=== PATIENT | female | born 1940 | race Caucasian/White ===

== ENCOUNTER 2019-02-17 15:10 | Emergency (ER) | payer OTHER, SELFPAY ==
--- NOTE | 2019-02-17 15:19 | ED.SYNCOPE ---
HPI - Syncope General Chief Complaint: Syncope Stated Complaint: STATES 2 SEIZURES WHILE OUT IN YARD Time Seen by Provider: 02/17/19 15:10 Source: patient Mode of arrival: ambulatory Limitations: no limitations History of Present Illness HPI narrative: 78-year-old female nonsmoker with history of hypertension and hyperlipidemia presents with 2 episodes of witnessed loss of consciousness. She states she felt bit short of breath and then became intensely nauseated and sat down. Soon thereafter she lost consciousness and was witnessed by her friend. She denies any palpitations or chest pain leading into this. She denies any trauma before or as a result of the episodes. She was not changing position and denies any recent nausea, vomiting but has had episodes of diarrhea as a consequence of ongoing ?gallbladder syndrome ?. Related Data Home Medications Medication Instructions Recorded Confirmed albuterol sulfate [Proventil HFA] #0 05/19/17 amlodipine [Norvasc] 2.5 mg PO DAILY #0 05/19/17 02/17/19 atenolol 25 mg PO DAILY #0 05/19/17 02/17/19 atorvastatin [Lipitor] 40 mg PO DAILY #0 05/19/17 02/17/19 ferrous sulfate [Iron (ferrous #0 05/19/17 sulfate)] furosemide [Lasix] #0 05/19/17 glipizide #0 05/19/17 losartan [Cozaar] #0 05/19/17 mometasone-formoterol [Dulera] #0 05/19/17 trospium #0 05/19/17 levothyroxine 137 mcg PO DAILY 02/17/19 02/17/19 metformin 500 mg PO DAILY 02/17/19 02/17/19 sertraline 50 mg PO DAILY 02/17/19 02/17/19 Previous Rx's Medication Instructions Recorded cephalexin [Keflex] 500 mg PO QID 7 Days #28 cap 02/17/19 Allergies Allergy/AdvReac Type Severity Reaction Status Date / Time JOHNSON Inhibitors Allergy Unknown Unverified 12/18/17 12:47 [JOHNSON INHIBITORS] erythromycin base Allergy Unknown Unverified 12/18/17 12:47 [ERYTHROMYCIN BASE] orange (food color) Allergy Unknown Unverified 12/18/17 12:47 [ORANGE (FOOD COLOR)] red (food color) Allergy Unknown Unverified 12/18/17 12:47 [RED (FOOD COLOR)] Review of Systems Constitutional Denies chills, Denies fever(s), Denies lethargy and Reports weakness Eyes Denies change in vision, Denies eye discharge, Denies irritation and Denies loss of vision ENT Ears, Nose, Mouth, and Throat: Denies change in voice, Denies neck pain and Denies sore throat Cardiovascular Denies chest pain, Reports diaphoresis, Reports syncope, Denies irregular heart rhythm, Denies lightheadedness, Denies palpitations, Denies dyspnea, Denies dyspnea on exertion and Denies orthopnea Respiratory Denies cough, Denies dyspnea, Denies dyspnea on exertion and Denies wheezing Gastrointestinal Gastrointestinal: Denies abdominal pain, Denies change in bowel habits, Denies diarrhea, Denies nausea and Denies vomiting Genitourinary Denies hematuria, Denies flank pain, Denies urinary incontinence and Denies urinary urgency Musculoskeletal Denies neck pain Integumentary/Breasts Denies pruritus, Denies erythema, Denies rash and Denies wounds Neurologic Denies confusion, Reports syncope, Denies loss of vision and Reports weakness Psychiatric Denies anxiety, Denies confusion, Denies depression, Denies homicidal ideation and Denies suicidal ideation Endocrine Denies palpitations Hematologic/Lymphatic Denies easy bruising Allergic/Immunologic Denies wheezing [facility] Social History Smoking Status: Never smoker Social History Smoking Status: Never smoker Exam Narrative Exam Narrative: GENERAL: 78-year-old female appears stated age, clearly not feeling well. HEAD: Atraumatic. Normocephalic. No temporal or scalp tenderness. EYES: Pupils equal round and reactive. Extraocular motions intact. No scleral icterus. No injection or drainage. ENT: Nose without bleeding, purulent drainage or septal hematoma. Throat without erythema, tonsillar hypertrophy or exudate. Uvula midline. Airway patent. NECK: Trachea midline. No JVD or lymphadenopathy. Supple, nontender, no meningeal signs. CARDIOVASCULAR: Regular rate and rhythm without murmurs, gallops, or rubs. RESPIRATORY: Clear to auscultation. Breath sounds equal bilaterally. No wheezes, rales, or rhonchi. GASTROINTESTINAL: Abdomen soft, non-tender, nondistended. No hepato-splenomegaly, or palpable masses. No guarding. EXTREMITIES: No clubbing, cyanosis, or edema. No joint tenderness, effusion, or edema noted. BACK: Nontender without deformity or crepitance. No flank tenderness. NEURO: AOx3. SKIN: No rash or erythema. Initial Vital Signs Initial Vital Signs: Vital Signs Temperature 98.3 F 02/17/19 15:23 Pulse Rate 65 02/17/19 15:23 Respiratory Rate 17 02/17/19 15:23 Blood Pressure 133/64 02/17/19 15:23 Pulse Oximetry 96 02/17/19 15:23 Course Orders Ordered: ED Orders 02/17/19 15:17 EKG-12 Lead Stat 02/17/19 15:18 XR chest 1V Stat 02/17/19 15:45 B Type Natriuretic Peptide Stat Complete Blood Count AUTO DIFF Stat Comprehensive Metabolic Panel Stat Lactate (Lactic Acid) Stat Troponin & CK Cardiac Panel Stat 02/17/19 16:55 Urine Culture Stat Urine Microscopic Stat Vital Signs - 8 hr 02/17/19 15:23 02/17/19 16:30 02/17/19 17:29 Temperature 98.3 F Pulse Rate 65 62 Respiratory Rate 17 Blood Pressure 133/64 Blood Pressure [Right Arm] 140/61 134/68 Pulse Oximetry 96 02/17/19 17:30 Temperature Pulse Rate 65 Respiratory Rate Blood Pressure Blood Pressure [Right Arm] 166/78 H Pulse Oximetry MDM - Syncope Differential Diagnosis Likely syncope due to orthostatic hypotension, vasovagal syncope, complete atrioventricular block, pulmonary embolism and dehydration Lab Data Attestation: I reviewed the patient's lab results. Result diagrams: 02/17/19 15:45 02/17/19 15:45 Lab Results 02/17/19 02/17/19 02/17/19 Range/Units 15:45 15:45 15:45 WBC 11.6 H (4.5-11.0) X10^3/uL RBC 5.67 H (4.0-5.2) X10^6/uL Hgb 14.5 (12.0-16.0) g/dL Hct 43.8 (36-46) % MCV 77.3 L (80-100) fL MCH 25.5 L (26-34) PG MCHC 33.1 (30-36) % RDW 17.8 H (11.6-14.8) % Plt Count 276 (150-400) X10^3/uL Neut % (Auto) 67.7 (50-75) % Lymph % (Auto) 11.8 L (25-40) % [place] % (Auto) 6.0 (3-14) % Eos % (Auto) 13.4 H (2-4) % Baso % (Auto) 1.1 (0-2) % Neut # (Auto) 7900 H (6723-4380) /uL Lymph # (Auto) 1400 (2552-6678) /uL [place] # (Auto) 700 (0-900) /uL Eos # (Auto) 1500 H (0-450) /uL Baso # (Auto) 100 (0-100) /uL Sodium 139 (137-145) mmol/L Potassium 4.0 (3.4-5.1) mmol/L Chloride 101 (98-107) mmol/L Carbon Dioxide 29 (22-32) mmol/L BUN 15 (7-17) mg/dL Creatinine 0.90 (0.52-1.04) mg/dL Estimated GFR > 60.0 (>60) mL/min BUN/Creatinine Ratio 16.7 (6-22) Glucose 158 H (80-110) mg/dL Lactate 2.1 (0.7-2.1) mmol/L Calcium 9.6 (8.4-10.2) mg/dL Total Bilirubin 0.7 (0.2-1.3) mg/dL AST 23 (14-36) IU/L ALT 14 (9-52) IU/L Alkaline Phosphatase 128 H (38-126) U/L Total Creatine Kinase 68 (30-135) U/L CK-MB (CK-2) TNP CK-MB (CK-2) Rel Index TNP Troponin I < 0.012 (0.01-0.034) ng/mL B-Natriuretic Peptide 164 H (<100) Total Protein 7.6 (6.3-8.2) g/dL Albumin 4.2 (3.5-5.0) g/dL Globulin 3.4 (1.7-4.1) g/dL Albumin/Globulin Ratio 1.2 (1.0-2.8) Urine RBC (0-5/HPF) Urine WBC (0-5/HPF) Ur Squamous Epith Cells (0-5/HPF) Urine Bacteria (None) Ur Culture Indicated? 02/17/19 Range/Units 16:55 WBC (4.5-11.0) X10^3/uL RBC (4.0-5.2) X10^6/uL Hgb (12.0-16.0) g/dL Hct (36-46) % MCV (80-100) fL MCH (26-34) PG MCHC (30-36) % RDW (11.6-14.8) % Plt Count (150-400) X10^3/uL Neut % (Auto) (50-75) % Lymph % (Auto) (25-40) % [place] % (Auto) (3-14) % Eos % (Auto) (2-4) % Baso % (Auto) (0-2) % Neut # (Auto) (3411-9850) /uL Lymph # (Auto) (9983-0079) /uL [place] # (Auto) (0-900) /uL Eos # (Auto) (0-450) /uL Baso # (Auto) (0-100) /uL Sodium (137-145) mmol/L Potassium (3.4-5.1) mmol/L Chloride (98-107) mmol/L Carbon Dioxide (22-32) mmol/L BUN (7-17) mg/dL Creatinine (0.52-1.04) mg/dL Estimated GFR (>60) mL/min BUN/Creatinine Ratio (6-22) Glucose (80-110) mg/dL Lactate (0.7-2.1) mmol/L Calcium (8.4-10.2) mg/dL Total Bilirubin (0.2-1.3) mg/dL AST (14-36) IU/L ALT (9-52) IU/L Alkaline Phosphatase (38-126) U/L Total Creatine Kinase (30-135) U/L CK-MB (CK-2) CK-MB (CK-2) Rel Index Troponin I (0.01-0.034) ng/mL B-Natriuretic Peptide (<100) Total Protein (6.3-8.2) g/dL Albumin (3.5-5.0) g/dL Globulin (1.7-4.1) g/dL Albumin/Globulin Ratio (1.0-2.8) Urine RBC 0-1/hpf (0-5/HPF) Urine WBC 10-30/hpf H (0-5/HPF) Ur Squamous Epith Cells 1-5 /hpf (0-5/HPF) Urine Bacteria Many (>30) H (None) Ur Culture Indicated? Specimen cultured Point of Care Testing Glucose POC 148 Urine Dip Bedside Urine Glucose Negative Bedside Urine Bilirubin ++ 2 Bedside Urine Ketone +/- 5 Urine Specific [place] 1.020 Bedside Urine Occult Blood +/- Bedside Urine pH 5.5 Bedside Urine Protein + 30 Bedside Urine Urobilinogen +/- 1mg Bedside Urine Nitrite + Positive Bedside Urine Leukocytes +++ 500 Esterase Imaging Data Chest x-ray: Radiologist's impression: Kailyn Jung 78 F [address] [address] XRay Report Signed Patient: Kailyn Jung MMR#: [id number] : [id number]:[id number] Age/Sex: 78 / FDate of Service: 02/17/19 Loc: ED Accession Number: [id number] Procedure: XR chest 1V Ordering Provider: Christ Quinonez D.O. PROCEDURE: XR CHEST 1V INDICATIONS: syncope TECHNIQUE: One view of the chest was acquired. COMPARISON: None. FINDINGS: Surgical changes and devices: Postsurgical changes in the lower neck at midline. Lungs and pleura: Lungs are clear. No pleural effusions or pneumothorax. Mediastinum: Mediastinal contours appear normal. Heart size is normal. Bones and chest wall: No suspicious bony lesions. Overlying soft tissues appear unremarkable. IMPRESSION: No acute cardiopulmonary disease. Dictated by: Caden Pardo M.D. on 02/17/2019 at 16:45 Approved by: Caden Pardo M.D. on 02/17/2019 at 16:46 [facility] Narrative Medical decision making narrative: Multiple etiologies for patient's symptoms considered including: [Dehydration versus orthostatic hypotension versus seizure versus cardiac arrhythmia versus pulmonary embolism versus other] Patient's symptoms improved or duration of stay with above-stated therapies. Findings and discharge diagnosis discussed with patient/family followed by verbalization of understanding Return precautions discussed with patient/family whom verbalize understanding. Discharge Plan Departure Patient Disposition: Home Clinical Impression: Acute UTI, Atypical syncope Discharge Date/Time: 02/17/19 17:53 Interventions: ED Discharge Assessment Last Done: 02/17/19 17:53 Instructions: DI for Syncope in Adults (Fainting) Activity Restrictions/Additional Instructions: *You have been diagnosed with [acute UTI and syncope] *What to do: *Take medications as directed: [facility] [place] [facility] *Follow up with your primary care provider in 2-3 days, call for an appointment. Let them know you were seen in the Emergency Department and that we ask that you be seen in follow up *Return to ER if you should have any new, worsening or concerning symptoms Prescriptions: New cephalexin [Keflex] 500 mg capsule 500 mg PO QID 7 Days Qty: 28 RF: 0 No Action losartan [Cozaar] 100 MG tablet Qty: 0 RF: 0 glipizide 5 MG tablet Qty: 0 RF: 0 atorvastatin [Lipitor] 40 MG tablet 40 mg PO DAILY Qty: 0 RF: 0 atenolol 25 MG tablet 25 mg PO DAILY Qty: 0 RF: 0 furosemide [Lasix] 20 MG tablet Qty: 0 RF: 0 trospium 60 MG capsule,extended release 24hr Qty: 0 RF: 0 amlodipine [Norvasc] 2.5 MG tablet 2.5 mg PO DAILY Qty: 0 RF: 0 albuterol sulfate [Proventil HFA] 90 MCG/PUFF HFA aerosol inhaler Qty: 0 RF: 0 mometasone-formoterol [Dulera] 100 MCG/5 MCG HFA aerosol inhaler Qty: 0 RF: 0 ferrous sulfate [Iron (ferrous sulfate)] 325 MG tablet Qty: 0 RF: 0 metformin 500 mg Tablet 500 mg PO DAILY RF: 0 levothyroxine 137 mcg tablet 137 mcg PO DAILY RF: 0 sertraline 50 mg Tablet 50 mg PO DAILY RF: 0
[2019-02-17 15:23] VITALS: BP 133/64; PULSE 65; RESP 17; TEMP 36.8; O2SAT 96; BMI 35.2
[2019-02-17 15:54] LABS: Add Manual Diff / Slide Review NO; Basophils Absolute Auto 100 /uL (0-100); Basophils Percent Auto 1.1 % (0-2); Eosinophils Absolute Auto 1500 /uL (0-450); Eosinophils Percent Auto 13.4 % (2-4); Hematocrit 43.8 % (36-46); Hemoglobin 14.5 g/dL (12.0-16.0); Lymphocytes Absolute Auto 1400 /uL (1100-4500); Lymphocytes Percent Auto 11.8 % (25-40); Mean Corpuscular HGB Conc 33.1 % (30-36); Mean Corpuscular Hemoglobin 25.5 PG (26-34); Mean Corpuscular Volume 77.3 fL (80-100); Monocytes Absolute Auto 700 /uL (0-900); Neutrophils Absolute Auto 7900 /uL (1500-7000); Neutrophils Percent Auto 67.7 % (50-75); Platelet Count 276 X10^3/uL (150-400); Red Blood Cell Count 5.67 X10^6/uL (4.0-5.2); Red Cell Distribution Width 17.8 % (11.6-14.8); White Blood Cell Count 11.6 X10^3/uL (4.5-11.0)
[2019-02-17 16:13] LABS: Alanine Aminotransferase 14 IU/L (9-52); Albumin 4.2 g/dL (3.5-5.0); Albumin Globulin Ratio 1.2 (1.0-2.8); Alkaline Phosphatase 128 U/L (38-126); Aspartate Aminotransferase 23 IU/L (14-36); BUN Creatinine Ratio 16.7 (6-22); Bilirubin Total 0.7 mg/dL (0.2-1.3); Blood Urea Nitrogen 15 mg/dL (7-17); Calcium 9.6 mg/dL (8.4-10.2); Carbon Dioxide 29 mmol/L (22-32); Chloride 101 mmol/L (98-107); Creatine Kinase 68 U/L (30-135); Estimated Glomerular Filt Rate > 60.0 mL/min (>60); Globulin 3.4 g/dL (1.7-4.1); Glucose 158 mg/dL (80-110); HEMOLYSIS < 15 (0-50); Lactate (Lactic Acid) 2.1 mmol/L (0.7-2.1); Sodium 139 mmol/L (137-145); Total Protein 7.6 g/dL (6.3-8.2)
[2019-02-17 16:16] LABS: B Type Natriuretic Peptide 164 (<100)
[2019-02-17 16:23] LABS: Troponin I < 0.012 ng/mL (0.01-0.034)
[2019-02-17 16:30] VITALS: BP 140/61
[2019-02-17 17:23] LABS: Bacteria Urine Many (>30); RBC Urine 0-1/HPF (0-5/HPF); Squamous Epithelial Cell Urine 1-5 /HPF (0-5/HPF); WBC Urine 10-30/HPF (0-5/HPF)
[2019-02-17 17:24] LABS: Culture Indicated Urine Specimen Cultured
[2019-02-17 17:29] VITALS: BP 134/68; PULSE 62
[2019-02-17 17:30] VITALS: BP 165/75; BP 166/78; PULSE 65; PULSE 69
== END 2019-02-17 17:53 | disposition home or self-care (01) ==
PROVIDERS: Emergency Provider Emergency Medicine
DX: N39.0 Urinary tract infection, site not specified (principal); R55 Syncope and collapse; R06.02 Shortness of breath
CPT/HCPCS: 36591; 71045; 80053; 81003; 81015; 82550; 82962; 83605; 83880; 84484; 85025; 87077; 87086; 87186; 93005; 99283; 99285

== ENCOUNTER 2019-11-01 19:55 | Emergency (ER) | payer OTHER, SELFPAY ==
[2019-11-01 20:07] VITALS: BP 183/102; PULSE 97; RESP 16; TEMP 36.8; O2SAT 99
--- NOTE | 2019-11-01 20:16 | DI.CT.S_ITS ---
PROCEDURE: CT HEAD/BRAIN WO CON INDICATIONS: headache, hallucinations, htn, fall TECHNIQUE: Noncontrast 4.5 mm thick angled axial sections acquired from the foramen magnum to the vertex, with coronal and sagittal reformats. For radiation dose reduction, the following was used: automated exposure control, adjustment of mA and/or kV according to patient size. COMPARISON: None. FINDINGS: Image quality: Excellent. CSF spaces: Basal cisterns are patent. No extra-axial fluid collections. The ventricles are symmetric in size and shape. Brain: No intracranial bleeds or masses. There is mild cerebral volume loss for age, with resultant ventricular and sulcal prominence. There are severe periventricular and deep white matter chronic small vessel ischemic changes. There is intracranial internal carotid artery atherosclerosis. Skull and face: Calvarium and visualized facial bones appear intact, without suspicious lesions. Sinuses: Visualized sinuses and mastoids are clear. IMPRESSION: 1. No acute intracranial abnormalities. 2. Mild cerebral volume loss and severe chronic microvascular ischemic changes. Dictated by: Caden Pardo M.D. on 11/01/2019 at 20:37 Approved by: Caden Pardo M.D. on 11/01/2019 at 20:40
--- NOTE | 2019-11-01 20:27 | ED.NEUROSD ---
HPI - Neuro Symptoms/Deficit General Chief Complaint: Neuro Symptoms/Deficit Stated Complaint: halluncinations Time Seen by Provider: 11/01/19 20:16 Source: patient Mode of arrival: Ambulatory History of Present Illness HPI Narrative: 79-year-old woman with a history of hypertension, hyperlipidemia, hypothyroidism, diabetes, and prior parathyroid surgery presents with visual hallucinations specifically seeing abnormal movement among a collection of of figuring and around her grandfather clock. First noted symptoms starting this morning. She is not having any auditory hallucinations and she is able to easily recognize that what she is seeing is abnormal. She describes no change in her medications, no recreational medications, no benzodiazepines, no narcotics, no alcohol. She does note that she had a fall at home approximately a week ago where she fell backward and landed on her head hitting in 2 different places. She is not on anticoagulants On Anticoagulants: No Related Data Home Medications Medication Instructions Recorded Confirmed albuterol sulfate [Proventil HFA] #0 05/19/17 amlodipine [Norvasc] 2.5 mg PO DAILY #0 05/19/17 02/17/19 atenolol 25 mg PO DAILY #0 05/19/17 02/17/19 atorvastatin [Lipitor] 40 mg PO DAILY #0 05/19/17 02/17/19 ferrous sulfate [Iron (ferrous #0 05/19/17 sulfate)] furosemide [Lasix] #0 05/19/17 glipizide #0 05/19/17 losartan [Cozaar] #0 05/19/17 mometasone-formoterol [Dulera] #0 05/19/17 trospium #0 05/19/17 levothyroxine 137 mcg PO DAILY 02/17/19 02/17/19 metformin 500 mg PO DAILY 02/17/19 02/17/19 sertraline 50 mg PO DAILY 02/17/19 02/17/19 Allergies Allergy/AdvReac Type Severity Reaction Status Date / Time JOHNSON Inhibitors Allergy Unknown Unverified 12/18/17 12:47 [JOHNSON INHIBITORS] erythromycin base Allergy Unknown Unverified 12/18/17 12:47 [ERYTHROMYCIN BASE] orange (food color) Allergy Unknown Unverified 12/18/17 12:47 [ORANGE (FOOD COLOR)] red (food color) Allergy Unknown Unverified 12/18/17 12:47 [RED (FOOD COLOR)] Review of Systems Review of Systems Narrative: Denies ? fever ? cough ? cold ? chills ? chest pain ? dyspnea ? orthopnea ? wheezing ? abdominal pain ? change to bowel or bladder habits ? nausea vomiting ? skin changes ? rashes Patient History Medical History (Updated 11/02/19 @ 01:26 by Jolynn Philip MD) COPD (chronic obstructive pulmonary disease) (Acute) Diabetes (Acute) Hyperlipidemia (Acute) Hypertension (Acute) Social History Smoking Status: Never smoker Smoking Status: Never smoker alcohol intake frequency: 0-2 drinks per day Substance Use Type: does not use Exam Narrative Exam Narrative: General: Healthy appearing, in no acute distress. Able to give a complete and coherent history. Well-nourished well-developed HEENT: Moist mucous membranes, normal sclera with reactive pupils, Neck: No JVD, supple Respiratory: Lungs are clear to auscultation, no wheezing no rales no rhonchi. Full and symmetrical air movement Cardiac: Regular rate and rhythm no murmurs no bruits Abdomen: Soft nontender good bowel tones, no flank pain Skin: Warm and dry, no rashes Neurologic: Grossly neurologically intact with no obvious asymmetries or abnormalities Extremities: No trauma, well perfused Psych: Cooperative, appropriate insight and affect, clearly recognizes that the visual changes that she is appreciating are not normal and are not being seen by others Initial Vital Signs Initial Vital Signs: Vital Signs Temperature 98.2 F 11/01/19 20:07 Pulse Rate 97 H 11/01/19 20:07 Respiratory Rate 16 11/01/19 20:07 Blood Pressure 183/102 H 11/01/19 20:07 Pulse Oximetry 99 11/01/19 20:07 Course Orders Ordered: ED Orders 11/01/19 20:16 CT head/brain wo con Stat 11/01/19 21:00 Complete Blood Count AUTO DIFF Stat Comprehensive Metabolic Panel Stat 11/01/19 22:00 Urinalysis and Microscopic Stat Vital Signs Vital signs: Vital Signs - 8 hr 11/01/19 20:07 11/01/19 21:38 11/02/19 00:24 Temperature 98.2 F 98.7 F Pulse Rate 97 H 74 85 Respiratory Rate 16 15 Blood Pressure 183/102 H Blood Pressure [Left Arm] 170/73 H 173/96 H Pulse Oximetry 99 98 95 MDM - Neuro Symptoms/Deficit Medical Records Attestation: I reviewed the patient's medical records. Lab Data Attestation: I reviewed the patient's lab results. Result diagrams: 11/01/19 21:00 11/01/19 21:00 Labs: Lab Results 11/01/19 11/01/19 11/01/19 Range/Units 21:00 21:00 22:00 WBC 7.1 (4.5-11.0) X10^3/uL RBC 5.39 H (4.0-5.2) X10^6/uL Hgb 14.4 (12.0-16.0) g/dL Hct 43.6 (36-46) % MCV 80.9 (80-100) fL MCH 26.7 (26-34) PG MCHC 33.1 (30-36) % RDW 15.6 H (11.6-14.8) % Plt Count 264 (150-400) X10^3/uL Neut % (Auto) 63.7 (50-75) % Lymph % (Auto) 23.8 L (25-40) % [place] % (Auto) 9.6 (3-14) % Eos % (Auto) 2.0 (2-4) % Baso % (Auto) 0.9 (0-2) % Neut # (Auto) 4500 (1742-5598) /uL Lymph # (Auto) 1700 (4730-8865) /uL [place] # (Auto) 700 (0-900) /uL Eos # (Auto) 100 (0-450) /uL Baso # (Auto) 100 (0-100) /uL Sodium 141 (137-145) mmol/L Potassium 3.6 (3.4-5.1) mmol/L Chloride 101 (98-107) mmol/L Carbon Dioxide 31 (22-32) mmol/L BUN 14 (7-17) mg/dL Creatinine 0.80 (0.52-1.04) mg/dL Estimated GFR > 60.0 (>60) mL/min BUN/Creatinine Ratio 17.5 (6-22) Glucose 155 H (80-110) mg/dL Calcium 10.1 (8.4-10.2) mg/dL Total Bilirubin 0.7 (0.2-1.3) mg/dL AST 26 (14-36) IU/L ALT 16 (<35) IU/L Alkaline Phosphatase 98 (38-126) U/L Total Protein 7.6 (6.3-8.2) g/dL Albumin 4.2 (3.5-5.0) g/dL Globulin 3.4 (1.7-4.1) g/dL Albumin/Globulin Ratio 1.2 (1.0-2.8) Urine Color Yellow Urine Appearance Clear Urine pH 6.5 (4.5-8.0) Ur Specific [place] <=1.005 (1.000-1.035) Urine Protein Negative (Negative) Urine Glucose (UA) Negative (Negative) g/dL Urine Ketones Negative (NEGATIVE) Urine Occult Blood Negative (Negative) Urine Nitrate Negative (Negative) Urine Bilirubin Negative (NEGATIVE) Urine Urobilinogen 0.2 (0.2) E.U./dL Ur Leukocyte Esterase Negative (NEGATIVE) Urine RBC None seen (0-5/HPF) Urine WBC None seen (0-5/HPF) Ur Squamous Epith Cells 0-1 /hpf (0-5/HPF) Urine Bacteria Occasional (0-1) D (None) Ur Culture Indicated? Cult not indicated ECG Data Interpretation: IMPRESSION: 1. No acute intracranial abnormalities. 2. Mild cerebral volume loss and severe chronic microvascular ischemic changes. Dictated by: Caden Pardo M.D. on 11/01/2019 at 20:37 MDM Narrative Medical decision making narrative: Unclear etiology for the visual changes that she is appreciating today. Her descriptions are very specific in for more animated than I would typically expect for visual hallucinations otherwise. No auditory hallucinations. CT scan is unremarkable. No changed medications and no evidence of alcohol or recreational medications. At this point she is safe for home discharge. I have encouraged her to follow-up with her primary care physician and she does have a coincidental appointment with her neurologist in 2 days. Discharge Plan Departure Patient Disposition: Home Clinical Impression: Episodes of formed visual hallucinations Discharge Date/Time: 11/02/19 00:46 Activity Restrictions/Additional Instructions: Thank you for coming in today Your description of the discrete visual hallucinations with the figurines and the grandfather clock he is quite interesting The CT scan of your brain was nice and reassuring. Your blood work and her physical exam is equally reassuring. The fact that you use no recreational medications or alcohol have not added new sleeping medications or prescription medications is also quite reassuring. I do not have a good explanation for the symptoms even noticed today however I am not finding any life-threatening explanations either. I do think it is safe for you to go home this evening. I encourage you to schedule follow-up appointment with your primary care physician. As you do have an appointment with your neurologist in 2 days I would also mention the symptoms to your neurologist specifically If you feel that you are getting worse, developed a fever, are more confused, any headaches or other changes that catcher attention please return to the emergency room for further evaluation. Prescriptions: No Action losartan [Cozaar] 100 MG tablet Qty: 0 RF: 0 glipizide 5 MG tablet Qty: 0 RF: 0 atorvastatin [Lipitor] 40 MG tablet 40 mg PO DAILY Qty: 0 RF: 0 atenolol 25 MG tablet 25 mg PO DAILY Qty: 0 RF: 0 furosemide [Lasix] 20 MG tablet Qty: 0 RF: 0 trospium 60 MG capsule,extended release 24hr Qty: 0 RF: 0 amlodipine [Norvasc] 2.5 MG tablet 2.5 mg PO DAILY Qty: 0 RF: 0 albuterol sulfate [Proventil HFA] 90 MCG/PUFF HFA aerosol inhaler Qty: 0 RF: 0 mometasone-formoterol [Dulera] 100 MCG/5 MCG HFA aerosol inhaler Qty: 0 RF: 0 ferrous sulfate [Iron (ferrous sulfate)] 325 MG tablet Qty: 0 RF: 0 metformin 500 mg Tablet 500 mg PO DAILY RF: 0 levothyroxine 137 mcg tablet 137 mcg PO DAILY RF: 0 sertraline 50 mg Tablet 50 mg PO DAILY RF: 0
[2019-11-01 21:38] VITALS: BP 170/73; PULSE 74; O2SAT 98
[2019-11-01 21:55] LABS: Add Manual Diff / Slide Review NO; Basophils Absolute Auto 100 /uL (0-100); Basophils Percent Auto 0.9 % (0-2); Eosinophils Absolute Auto 100 /uL (0-450); Hematocrit 43.6 % (36-46); Hemoglobin 14.4 g/dL (12.0-16.0); Lymphocytes Absolute Auto 1700 /uL (1100-4500); Lymphocytes Percent Auto 23.8 % (25-40); Mean Corpuscular HGB Conc 33.1 % (30-36); Mean Corpuscular Hemoglobin 26.7 PG (26-34); Mean Corpuscular Volume 80.9 fL (80-100); Monocytes Absolute Auto 700 /uL (0-900); Monocytes Percent Auto 9.6 % (3-14); Neutrophils Absolute Auto 4500 /uL (1500-7000); Neutrophils Percent Auto 63.7 % (50-75); Platelet Count 264 X10^3/uL (150-400); Red Blood Cell Count 5.39 X10^6/uL (4.0-5.2); Red Cell Distribution Width 15.6 % (11.6-14.8); White Blood Cell Count 7.1 X10^3/uL (4.5-11.0)
[2019-11-01 21:57] LABS: Alanine Aminotransferase 16 IU/L (<35); Albumin 4.2 g/dL (3.5-5.0); Albumin Globulin Ratio 1.2 (1.0-2.8); Alkaline Phosphatase 98 U/L (38-126); Aspartate Aminotransferase 26 IU/L (14-36); BUN Creatinine Ratio 17.5 (6-22); Bilirubin Total 0.7 mg/dL (0.2-1.3); Blood Urea Nitrogen 14 mg/dL (7-17); Calcium 10.1 mg/dL (8.4-10.2); Carbon Dioxide 31 mmol/L (22-32); Chloride 101 mmol/L (98-107); Estimated Glomerular Filt Rate > 60.0 mL/min (>60); Globulin 3.4 g/dL (1.7-4.1); Glucose 155 mg/dL (80-110); HEMOLYSIS < 15 (0-50); Potassium 3.6 mmol/L (3.4-5.1); Sodium 141 mmol/L (137-145); Total Protein 7.6 g/dL (6.3-8.2)
[2019-11-01 22:03] LABS: RBC Urine None Seen (0-5/HPF); WBC Urine None Seen (0-5/HPF)
[2019-11-01 22:04] LABS: Appearance Urine UA CLEAR; Bilirubin Urine UA NEGATIVE (NEGATIVE); Color Urine UA YELLOW; Glucose Urine UA NEGATIVE (Negative); Ketones Urine UA NEGATIVE (NEGATIVE); Leukocyte Esterase Urine UA NEGATIVE (NEGATIVE); Nitrite Urine UA NEGATIVE (Negative); Occult Blood Urine UA NEGATIVE (Negative); Protein Urine UA NEGATIVE (Negative); Specific Gravity Urine UA <=1.005 (1.000-1.035); Urobilinogen Urine UA 0.2 E.U./dL (0.2)
[2019-11-01 22:05] LABS: pH Urine UA 6.5 (4.5-8.0)
[2019-11-01 22:08] LABS: Bacteria Urine Occasional (0-1); Culture Indicated Urine Cult Not Indicated; Squamous Epithelial Cell Urine 0-1 /HPF (0-5/HPF)
[2019-11-02 00:24] VITALS: BP 173/96; PULSE 85; RESP 15; TEMP 37.1; O2SAT 95
== END 2019-11-02 00:46 | disposition home or self-care (01) ==
PROVIDERS: Emergency Provider Emergency Medicine
DX: R44.1 Visual hallucinations (principal); I10 Essential (primary) hypertension; W01.198A Fall on same level from slipping, tripping and stumbling with subsequent striking against other object, initial encounter
CPT/HCPCS: 36415; 70450; 80053; 81001; 85025; 99284

== ENCOUNTER → 2021-03-20 10:19 | Outpatient (CLI) | payer OTHER, SELFPAY ==
[2021-03-20 11:40] LABS: COVID19 -Nasal RAPID Negative (Negative)
== END ==
PROVIDERS: Visit Provider Physician Assistant
DX: Z01.812 Encounter for preprocedural laboratory examination (principal); Z20.822 Contact with and (suspected) exposure to COVID-19
CPT/HCPCS: 87635

== ENCOUNTER → 2021-03-21 10:57 | Outpatient (CLI) | payer OTHER, SELFPAY ==
--- NOTE | 2021-03-21 | DI.NM.S_ITS ---
PROCEDURE: NM SHANI PERF SPECT R&S PHARM Rest and pharmacological stress myocardial perfusion SPECT with gated imaging and ejection fraction RADIOPHARMACEUTICAL: 25.5 mCi Tc-99m tetrafosmin IV at rest and 27.2 mCi Tc-99m tetrafosmin IV at peak effect of pharmacological stress. [id number] was performed. INDICATIONS: Dyspnea Other specified disorders of arteries TECHNIQUE: Radiopharmaceutical was injected at peak stress test, and also at rest. SPECT images were obtained. SPECT myocardial perfusion images were displayed in short axis, horizontal long axis, and vertical long axis views. Gated images were reviewed using The [employer] software. COMPARISON: None. CARDIAC STRESS: A pharmacologic stress test was performed under the supervision of an attending staff, using an infusion of lexiscan 0.4mg IV X1. Hemodynamic data: There is normal blood pressure and heart rate response to pharmacologic stress. Symptoms: The patient denied anginal chest pain. Aminophylline: none EKG: No diagnostic changes of ischemia; no ectopy. FINDINGS: Raw data: There is good myocardial uptake of radiotracer. No significant motion artifacts. Otgm-ue-[id number] ratio is 0.22 (normal is less than 0.38 for tetrafosmin tracer). Left ventricle function: Gated images demonstrate normal left ventricular wall thickening. No segmental wall motion abnormalities. No transient ischemic dilation; TID is 1.0 (normal less than 1.3). Left ventricle resting end diastolic volume is 103 mL. Left ventricle stress ejection fraction is 82%; normal range is above 45%. Myocardial perfusion: There is small mildly intense fixed distal anterior wall defect that shifts with prone imaging, suggesting artifact than true ischemia or infarction. IMPRESSION: Low risk, probably normal pharmaceutical nuclear stress test 1) No perfusion evidence of ischemia or infarction. There is small mildly intense fixed distal anterior wall defect that shifts with prone imaging, suggesting artifact. 2) Normal left ventricular size, wall motion, and systolic function (EF post stress 82%). 3) No ECG evidence of ischemia. 4) No angina during the study. 5) No prior nuclear stress test available for comparison. Dictated by: Melvin Anthony MD on 03/22/2021 at 13:05 Approved by: Melvin Anthony MD on 03/22/2021 at 13:07
--- NOTE | 2021-03-21 | DI.ECHO.S_ITS ---
[facility]---------+ [facility] +---------+ : : [address] [place] : : : : [id number] : : : : Phone: [phone]+ Echocardiogram Report + + :Name: YAQUELIN CARNEY Study Date: 03/21/2021 Height: 64.5 in: :[facility] ReadingLocation: Weight: 199 lb : : Gender: Female BSA: 2.0 m2 : :: 1940 Age: 80 yrs BP: 175/96 mmHg: :Reason For Study: DYSPNEA : :Ordering Physician: ABRAHAM, : :TABITHA Performed By: Bertha Sunshine : :Referring: TABITHA ANTHONY : + + Interpretation Summary 1) Mildly increased left ventricular thickness (concentric) with normal size, normal wall motion, and normal systolic function (EF 60-65%). 2) Normal right ventricular size and function. 3) No significant valvular abnormalities. 4) Hypertension present during the study (BP 175/96mmHg). 5) No prior Echo available for comparison. Procedure: A two-dimensional transthoracic echocardiogram with color flow and Doppler was performed. The study quality was technically adequate. There is no prior echocardiogram noted for this patient. The patient was in sinus rhythm with heart rates between 68-80 bpm during the exam. Left Ventricle: The left ventricle is normal in size. There is mild concentric left ventricular hypertrophy. The ejection fraction is estimated to be 60-65%. Left ventricular systolic function appears normal without focal wall motion abnormalities. Diastolic parameters suggest a relaxation abnormality of the left ventricle, consistent with probable normal filling pressures. Right Ventricle: The right ventricle is normal in size and function. Atria: The left atrium is moderately dilated. Right atrial size is normal. There is no Doppler evidence for an interatrial shunt. Mitral Valve: The mitral valve is normal in structure and function. There is mild mitral annular calcification. There is trace mitral regurgitation. Aortic Valve: The aortic valve is trileaflet. The aortic valve opens well. There is no aortic valve stenosis. No aortic regurgitation is present. Tricuspid Valve: The tricuspid valve is normal in structure and function. There is trace tricuspid regurgitation. Pulmonary artery pressures cannot be estimated because of the lack of a measurable TR jet velocity but the IVC suggests a CVP of around 3 mmHg. Pulmonic Valve: The pulmonic valve leaflets are thin and pliable; valve motion is normal. There is no pulmonic valvular regurgitation. Great Vessels: The aortic root is normal size. The ascending aorta is at the upper limits of normal in size. The IVC is of normal diameter and collapses greater than 50% with a sniff. This suggests a low right atrial pressure of 3 mm Hg. Pericardium/ Pleura There is no pericardial effusion. There is no pleural effusion. MMode/2D Measurements & Calculations LVIDd: 4.2 cm LVOT diam: 2.1 cm LVIDs: 2.8 cm Ao root diam: 3.3 cm FS: 32.1 % asc Aorta Diam: 4.0 cm IVSd: 1.2 cm Ao Arch Diam (Prox Trans): 2.8 cm LVPWd: 1.2 cm LV pelayo. diameter/BSA (cm/m^2): 2.1 LV sys. diameter/BSA (cm/m^2): 1.4 LA A2 area: 26.5 cm2 RA long axis: 4.4 cm LA A4 area: 21.9 cm2 RA area: 16.4 cm2 LA length (vol): 5.6 cm RA vol: 51.7 ml LA vol: 87.2 ml RA : 26.3 ml/m2 LA vol index: 44.4 ml/m2 IVC diam: 1.4 cm RVD1 (basal): 3.8 cm TAPSE: 2.0 cm Doppler Measurements & Calculations Ao V2 max: 108.1 cm/sec LVOT Max Pavel: 113.8 cm/sec Ao V2 mean: 79.1 cm/sec LV V1 max P.2 mmHg Ao max P.7 mmHg LV V1 VTI: 26.7 cm Ao mean P.7 mmHg LYNNE(I,D): 3.7 cm2 Ao V2 VTI: 24.7 cm LYNNE(V,D): 3.6 cm2 sev ratio: 1.1 LYNNE indexed to BSA (cm^2/m^2): 1.9 MV E max pavel: 61.1 cm/sec PA V2 max: 103.2 cm/sec MV A max pavel: 106.7 cm/sec PA V2 mean: 75.3 cm/sec MV E/A: 0.57 PA mean P.5 mmHg Med Peak E' Pavel: 6.2 cm/sec PA pr(Accel): 32.8 mmHg E/E' med: 9.9 Lat Peak E' Pavel: 6.0 cm/sec E/E' lat: 10.1 E/e' average: 10.0 MV dec time: 0.25 sec SV(LVOT): 91.9 ml Reading Physician:03:56 PM
== END ==
PROVIDERS: PCP Student in an Organized Health Care Education/Training Program; Referring Provider Internal Medicine Cardiovascular Disease; Visit Provider Internal Medicine Cardiovascular Disease
DX: I77.89 Other specified disorders of arteries and arterioles (principal); R06.00 Dyspnea, unspecified
CPT/HCPCS: 78452; 93017; 93306; A9502; J2785

== ENCOUNTER 2021-11-12 20:06 | Emergency (ER) | payer OTHER, SELFPAY ==
[2021-11-12] VITALS (7 sets, daily range): BP systolic 165–176; BP diastolic 71–105; PULSE 59–124; RESP 22; TEMP 36.7; O2SAT 91–100
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
--- NOTE | 2021-11-12 20:40 | PC.NURSE ---
pt ambulated with walker in room without difficulty denies any dizziness or difficulty walking
== END 2021-11-12 21:16 | disposition home or self-care (01) ==
PROVIDERS: Emergency Provider Emergency Medicine; PCP Student in an Organized Health Care Education/Training Program
DX: S00.81XA Abrasion of other part of head, initial encounter (principal); V89.0XXA Person injured in unspecified motor-vehicle accident, nontraffic, initial encounter
CPT/HCPCS: 99282; 99283